=== PATIENT | female | born 1965 ===

== ENCOUNTER 2017-11-06 10:00 | Outpatient (CLI) | payer OTHER | END 2017-11-06 14:59 | disposition home or self-care (01) | LOC: MAMO-SONO 10:00 | DX: Z12.31 Encounter for screening mammogram for malignant neoplasm of breast (principal); N63.11 Unspecified lump in the right breast, upper outer quadrant; N63.14 Unspecified lump in the right breast, lower inner quadrant; N64.4 Mastodynia ==

== ENCOUNTER 2018-05-09 14:45 | Outpatient (CLI) | payer OTHER | END 2018-05-09 14:51 | disposition home or self-care (01) | LOC: TOM 14:45 | DX: K40.90 Unilateral inguinal hernia, without obstruction or gangrene, not specified as recurrent (principal); R10.31 Right lower quadrant pain; R10.813 Right lower quadrant abdominal tenderness ==

== ENCOUNTER 2020-10-17 09:26 | Outpatient (CLI) | payer OTHER | END 2020-10-17 09:27 | disposition home or self-care (01) | LOC: MAMO-SONO 09:26 | DX: N64.89 Other specified disorders of breast (principal); N64.4 Mastodynia; Z12.31 Encounter for screening mammogram for malignant neoplasm of breast ==

== ENCOUNTER 2021-12-11 09:42 | Outpatient (CLI) | payer OTHER | END 2021-12-11 10:00 | disposition home or self-care (01) | LOC: MAMO-SONO 09:42 | PROVIDERS: ATTEND Obstetrics & Gynecology | DX: N64.4 Mastodynia (principal) ==

== ENCOUNTER 2023-04-04 14:23 | Outpatient (CLI) | payer OTHER | END 2023-04-04 14:30 | disposition home or self-care (01) | LOC: MAMO-SONO 14:23 | PROVIDERS: ATTEND Obstetrics & Gynecology | DX: N64.4 Mastodynia (principal); Z12.31 Encounter for screening mammogram for malignant neoplasm of breast ==

== ENCOUNTER → 2024-10-15 | Outpatient (CLI) | payer OTHER | END | disposition home or self-care (01) | LOC: MAMO-SONO 14:27 | PROVIDERS: ATTEND Obstetrics & Gynecology | DX: N64.4 Mastodynia (principal); Z12.31 Encounter for screening mammogram for malignant neoplasm of breast ==